=== PATIENT | male | born 1980 | race Caucasian/White ===

== ENCOUNTER 2022-01-08 10:06 | Outpatient (CLI) | payer OTHER ==
[2022-01-08 21:14] VITALS: BP 128/72
--- NOTE | 2022-01-08 21:14 | SLEEP CARE CONSULTATION ---
Information from patient questionnaire entered by Michelle Bird MA. I have reviewed and concur with the information entered by Michelle Bird MA. This document represents the service I personally performed and the decisions made by me, Gonsalo Pittman MD, [facility]. History of Present Illness Service Date and Time: 01/08/2022 1006 Reason for Visit: New patient (ONSET 11/2011, NO PRIORS,) Chief Complaint: reports: Insomnia, Unrefreshed sleep, Snoring, Excessive daytime sleepiness, Observed pauses in breathing, Fatigue, Frequent awakenings at night, Other Date of Onset: 10 PLUS YEARS Usual bedtime: 900 PM Time it takes to fall asleep: 1 HOURS Snores at night: Yes Observed to quit breathing while asleep: Yes (BUT NOT OFTEN) Sleeps alone due to snoring: No (HEAVY SLEEPER) Number of times waking at night: 1 - 2 Reasons for waking at night: reports: Snoring, Bathroom, Other Toss, Turn, or Twitch while sleeping: Yes Recalls having dreams: Yes Usually gets out of bed at: 0630 Feels refreshed in the morning: No Morning headache: No Sleepy or fatigued during the day: Yes Ever fallen asleep while driving: No Takes day naps: Yes Dreams during day naps: No Prior sleep studies: No Additional HPI information: I had the pleasure of seeing Mr. Ely today regarding the possibility of him having a sleep disorder. As you know, he is a 41-year-old gentleman who complains of loud snore, observed apneas, frequent awakenings, persistent fatigue, and excessive daytime sleepiness for at least 10 years. The patient tells me that he normally goes to bed around 9 pm, and it takes him approximately 30 minutes to fall asleep. He has been told that he snores loudly and irregularly at night. He has also never been observed to stop breathing in his sleep. His can sleep in the same bed. He can recall waking up on the average of 3 times during the night. He has awakened occasionally because of his own snoring, but not choking, or having to gasp for air. There is a lot of tossing and turning in his sleep. He reports having night terrors. In the morning he usually gets up out of the bed around 6:30 a.m. not feeling refreshed nor rested. He usually does not have a morning headache. During the day he complains of feeling sleepy and fatigued. His score on [place] Sleepiness Scale is 10 out of 24. He never has fallen asleep while driving nor has had any accident due to sleepiness. He usually does not take naps during the day. He denies having impaired concentration during the day. 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 Patient is and lives in [place]. Have you smoked in the past 12 months: Yes Cigarettes per day (20/pack): 10 Years of smokin Quit date: 2006 Smoking Pack Years: 5.0 Alcohol use: Yes Alcohol amount and frequency: 6-8- WEEKLY Caffeine use: Yes Caffeine amount and frequency: 5-6 X WEEKLY Family History Family history of sleep disordered breathing: Yes Family Hx Sleep Apnea: Father: Snoring, Sibling: Snoring Allergies and Home Medications Known drug allergies: No Drug allergies reviewed: Yes Home medication list reviewed: Yes Review of Systems Cardiovascular: reports: high blood pressure Respiratory: denies: shortness of breath, wheeze, sputum production, chronic cough, other Gastrointestinal: reports: heartburn Urinary: denies: incontinence, frequency, urgency, impotence, other Neurological: denies: headaches, seizure, head trauma, disorientation, speech dysfunction, gait or balance problems, fainting or unconsciousness, other Psychiatric: reports: anxiety Ear/Nose/Throat: denies: nasal congestion, sinus problems, nose bleeds, dry mouth/throat, hoarseness, injury to nose, tonsillectomy, wisdom teeth removed, other Endocrine: denies: thyroid disease, history of goiter, sluggishness, too hot or cold, excessive thirst, increased appetite, increased urination, unexplained weakness, other Musculoskeletal: denies: joint pain, neck pain, back pain, joint swelling, muscle pain or cramping, mobility problems, other Immunologic: denies: sneezing, rash, itching, allergies to food or environment, other Physical Exam Vital signs obtained and entered by: ELVIRA AGUSTIN Blood Pressure: 128/72 (LEFT, PULSE 71, RESP 16,) Cuff size: wrist Heart Rate: 64 O2 Saturation: 98 (CLOTH MASK) Height: 6 ft 2 in Weight: 230 lb (PT CLOTHES) Body Mass Index: 29.5 BMI Classification: Overweight Neck circumference: 16 (INCHES) Mood/affect: normal Nostrils: patent to airflow Turbinates: normal Septum: midline Mouth and throat: narrow oropharynx Soft palate: long Hard palate: normal Uvula: normal Uvula visualization: 50% Mallampati Class II Tongue: normal in size Tonsils: small Chin and jaw: normal size and position Neck: normal w/o lymphadenopathy or thyromegaly Impression and Plan IMPRESSION: 1. Obstructive Sleep Apnea-Hypopnea Syndrome, as suggested by history of loud and irregular snoring, observed cessation of breath while asleep, frequent awakenings during the night, unrefreshed sleep, and daytime hypersomnolence. Narrow oropharynx and obesity are common predisposing factors for obstructive sleep apnea-hypopnea syndrome. Untreated obstructive sleep apnea can also cause hypertension. I recommend proceeding to polysomnography to confirm the diagnosis and to assess severity. I informed the patient of what the sleep studies involve and after some discussion, he agreed to proceed. Plan: 1. Schedule polysomnography and return in 1 to 2 weeks after the study to discuss result and initiate therapy. 2. Avoid long distance driving or when feeling sleepy. 3. Avoid alcohol, sedative, and muscle relaxant around bedtime. 4. Attempt to lose weight. Follow up with Sleep Care in: 1-2 months Visit Type: In Office Time Spent with Patient (minutes): 15 Provider Statement: I spent 100% of the Face to Face Visit with the patient with greater than 50% spent counseling the patient and coordination of care.
== END 2022-01-08 10:07 | disposition home or self-care (01) ==
LOC: SC 10:06
PROVIDERS: ATTEND Internal Medicine Pulmonary Disease
DX: R06.83 Snoring (principal); R06.81 Apnea, not elsewhere classified; G47.8 Other sleep disorders; G47.10 Hypersomnia, unspecified
CPT/HCPCS: 99202; 99212

== ENCOUNTER 2022-01-29 20:21 | Outpatient (CLI) | payer OTHER | END 2022-01-29 20:22 | disposition home or self-care (01) | LOC: SC 20:21 | PROVIDERS: ATTEND Internal Medicine Pulmonary Disease | DX: G47.33 Obstructive sleep apnea (adult) (pediatric) (principal); G47.61 Periodic limb movement disorder | CPT/HCPCS: 95810 ==

== ENCOUNTER 2022-02-08 13:42 | Outpatient (CLI) | payer OTHER ==
[2022-02-08 14:24] VITALS: BP 135/76
--- NOTE | 2022-02-08 14:24 | SLEEP CARE CONSULTATION ---
Information from patient questionnaire entered by Michelle Bird MA. I have reviewed and concur with the information entered by Michelle Bird MA. This document represents the service I personally performed and the decisions made by , Sharee Orosco ARNP. History of Present Illness Service Date and Time: 02/08/2022 1342 Initial [place] Sleepiness Scale score: 10 (2021) Current [place] Sleepiness Scale score: 10 (02/23) Additional HPI information: GRACE SHAFFER returns for follow up and results of the recently performed polysomnography. I explained the pathophysiology behind obstructive sleep apnea. We then spent quite a bit of time discussing different treatment options. For mild obstructive sleep apnea, surgery and oral appliance are alternatives to nasal CPAP therapy but in moderate or severe cases, nasal CPAP is the most effective and reliable treatment. Because apnea is primarily in supine position, then positional management therapy could be effective. Methods discussed such as positioning with pillows to prevent supine sleep. I reviewed the impact of weight changes on sleep apnea and strongly recommended losing weight. After some discussion, the patient opted to go with the nasal CPAP therapy. Nasal autoCPAP set at 4-15 cmH20 will be ordered with rationale explained. A manual titration study will be ordered if unable to find optimal pressure with office adjustments. I explained how CPAP machine works and what to expect when using the machine. Using CPAP every night in order to get used to it was emphasized. Patient advised to put CPAP mask on before getting into bed so as not to fall asleep without CPAP. To assist acclimation to CPAP use, it could also be used for a short time during day while reading or watching TV. The patient was instructed to call the CPAP supplier to discuss any mechanical problem that may occur. If the mask given is uncomfortable or is difficult to keep on through the night even with adjustment, contact the CPAP supplier as many will replace with another mask style if notified before 30 days. If snoring or perceives is not getting enough air or too much air from the machine, notify this office. AASM patient education PAP tips reviewed and given to patient. Patient counseled not drink alcohol less than 4 hours before bedtime as it can increase snoring and apnea. Patient was cautioned about risks of drowsy driving until sleepiness symptoms resolve. Patient denies drowsy driving. Sleep Study - Results Type of Sleep Study: Home sleep study (F/U HOME STUDY, 01/29/22 [facility],) Prior sleep studies: No Polysomnography/Home Sleep Study results: IMPRESSION: The quality of the study is good. The patient had poor sleep efficiency as he was awake the first half of the study. The sleep architecture was abnormal for sleep fragmentation and reduced amount of time spent in REM and slow wave sleep (N3). Respiratory monitoring showed mild obstructive sleep apnea-hypopnea (AHI = 5.4) associated with frequent arousals, oxyhemoglobin desaturation but no significant hypoxia (santosh oxygen saturation of 90%). The respiratory events occurred almost exclusively during supine sleep (supine AHI = 8.6; nonsupine = 3.75). Snore was moderate to loud in intensity. There was mild periodic leg movement of sleep not contributing to the sleep fragmentation. Cardiac rhythm was normal sinus rhythm without significant arrhythmia. No abnormal behavior (parasomnia) observed during the night. Allergies and Home Medications Known drug allergies: No Drug allergies reviewed: Yes Home medication list reviewed: Yes (no changes) Review of Systems Review of systems same as previous: Yes (no changes) Physical Exam Vital signs obtained and entered by: Cindy BIRD CMA [facility] Blood Pressure: 135/76 (LEFT, PULSE 106, RESP 20 ) Heart Rate: 107 O2 Saturation: 98 Height: 6 ft 2 in Weight: 232 lb (UNIFORM) Body Mass Index: 29.7 BMI Classification: Overweight Impression and Plan 1. Obstructive Sleep Apnea-Hypopnea Syndrome, mild, with lowest oxygen saturation of 90%. Obviously this is the cause of the patients symptoms of unrefreshed sleep, and excessive daytime sleepiness. Positive pressure therapy could benefit hypertension and anxiety. As mentioned above, the patient will be started on nasal autoCPAP therapy with pressure set at 4-15 cmH2O. A manual titration study will be completed if unable to find optimal treatment pressure with office adjustments. Compliance guidelines also reviewed. A copy of com pliance guidelines will be given for reference at check out. Because the apnea is more severe supine, I instructed to avoid sleeping supine using pillow positioning until able to start CPAP use. 2. Periodic limb movement, mild, that did not fragment patients sleep. Periodic limb movement of sleep (PLMS) is characterized by episodes of repetitive limb movements that occur during sleep and usually involve the lower limbs. Patient was advised that no treatment is needed at this time. If symptoms increase, then further evaluation is indicated. * Nasal auto CPAP therapy, pressure at 4-15 cm H2O. * Attempt to lose weight. * Avoid alcohol consumption near bedtime. * Avoid supine sleep until using CPAP. * The patient is again cautioned about driving until sleepiness completely resolves. * Return one month after CPAP obtained. I will assess response to therapy and compliance at that time. Counseling Topics: Weight loss health impact Visit Type: In Office Time Spent with Patient (minutes): 21 Provider Statement: I spent 100% of the Face to Face Visit with the patient with greater than 50% spent counseling the patient and coordination of care.
== END 2022-02-08 13:43 | disposition home or self-care (01) ==
LOC: SC 13:42
PROVIDERS: ATTEND Nurse Practitioner Family
DX: G47.33 Obstructive sleep apnea (adult) (pediatric) (principal); G47.61 Periodic limb movement disorder
CPT/HCPCS: 99212; 99213

== ENCOUNTER 2022-05-01 15:06 | Outpatient (CLI) | payer OTHER ==
[2022-05-01 15:43] VITALS: BP 139/82
--- NOTE | 2022-05-01 15:43 | SLEEP CARE CONSULTATION ---
Information from patient questionnaire entered by Michelle Bird MA. I have reviewed and concur with the information entered by Michelle Bird MA. This document represents the service I personally performed and the decisions made by , Sharee Orosco ARNP. History of Present Illness Service Date and Time: 05/01/2022 1506 Previous diagnosis: Mild, Obstructive Sleep Apnea-Hypopnea Syndrome AHI: 5.4 (in 2021) Reason for follow up: first compliance (RESMED, TRIPATHI 03/26/2022, ) Equipment type: CPAP Equipment obtained from: Other ([facility]; got inital supplies) Mask style: Nasal Mask brand: Resmed (AirFit N20) Backup mask available: Yes (other mask) Last cushion change: 2-3 weeks Prior sleep studies: No Type of Sleep Study: Home sleep study (F/U HOME STUDY, 01/29/22 [facility],) HPI additional information: GRACE SHAFFER was diagnosed to have mild, AHI 5.4, obstructive sleep apnea- hypopnea syndrome and returned today for CPAP therapy first compliance follow- up. Sleep Study - Results Type of Sleep Study: Home sleep study (F/U HOME STUDY, 01/29/22 [facility],) Prior sleep studies: No CPAP Compliance Data - Data Reviewed with Patient Average duration of nightly device use: 7 hours 30 minutes Compliance rate %: 93 (03/31/2022-04/29/2022; 30 days, usage) Current pressure setting (cmH2O): 4-15 (median 7.6, avg 10.4, max 11.9) Average residual AHI: 1.6 Central apnea: .1 Obstructive apnea: .8 Hypopnea: .2 Average large leak: 4.1 Subjective Missed days of use due to: reports: travel ([employer], ), other (POWER OUTAGE. ) Patient concerns: reports: mask leak noise (with the full face mask he tried), condensation in mask/hose (resolved with reducing humidity). denies: aerophagia, mask discomfort, air blowing in eyes, nasal congestion, dry mouth, nose, throat, epistaxis, other Observed to snore while using device: No Current pressure setting perceived as: comfortable On therapy, patient: reports: other (not feeling much improvement yet). denies: drowsiness while driving Initial [place] Sleepiness Scale score: 10 (2021) Current [place] Sleepiness Scale score: 10 (05/01/2022) Allergies and Home Medications Home medication list reviewed: Yes (no changes) Review of Systems Review of systems same as previous: Yes (no changes) Physical Exam Vital signs obtained and entered by: ELVIRA AGUSTIN Blood Pressure: 139/82 (LEFT, ) Heart Rate: 80 O2 Saturation: 97 (CLOTH MASK) Height: 6 ft 2 in Weight: 230 lb Body Mass Index: 29.5 BMI Classification: Overweight Impression and Plan 1. Obstructive Sleep Apnea-Hypopnea Syndrome, mild, with good treatment compliance and good apnea control. On CPAP therapy, the patient is still getting used to the air pressure and feels it is interrupting his sleep more than helping him get good sleep. He does not feel he is sleeping as deep since starting the CPAP. Patient has tried about 3 mask styles and likes the ResMed Airfit N20 mask the best so far. He would like a mask with the hose on the top of head but states he will stay with this mask for now. The patients pressure will be changed to autoCPAP 10-12 cmH20 to reflect pressures being used. Patient advised to contact me if pressure change is uncomfortable so that it can be adjusted. Goals for apnea control discussed. Patient's apnea severity and rationale for treatment to reduce apnea, improve sleep quality and reduce cardiovascular and cerebrovascular events was reviewed. I also reviewed the benefit of consistent device use of CPAP for hypertension and anxiety. Patient was encouraged to try to lose weight for his overall health and to reduce apneas. * Change auto CPAP pressure to 10-12 cmH2O * Notify me if snoring with mask or feeling that the pressure is too much or too little * Attempt to lose weight * Call this office if any problems using CPAP * Return for follow up in 1-2 months, or sooner if concerns arise Counseling Topics: Spare mask, Weight loss health impact Visit Type: In Office Time Spent with Patient (minutes): 21 Provider Statement: I spent 100% of the Face to Face Visit with the patient with greater than 50% spent counseling the patient and coordination of care.
== END 2022-05-01 15:07 | disposition home or self-care (01) ==
LOC: SC 15:06
PROVIDERS: ATTEND Nurse Practitioner Family
DX: G47.33 Obstructive sleep apnea (adult) (pediatric) (principal); E66.3 Overweight; Z68.29 Body mass index [BMI] 29.0-29.9, adult
CPT/HCPCS: 99212; 99213

== ENCOUNTER 2022-12-26 10:58 | Outpatient (CLI) | payer OTHER ==
[2022-12-26 11:34] VITALS: BP 134/100
--- NOTE | 2022-12-26 11:34 | SLEEP CARE CONSULTATION ---
Information from patient questionnaire entered by Leonidas Horvath. I have reviewed and concur with the information entered by Leonidas Horvath. This document represents the service I personally performed and the decisions made by me, Sharee Orosco ARNP. History of Present Illness Service Date and Time: 12/26/2022 1058 Previous diagnosis: Mild, Obstructive Sleep Apnea-Hypopnea Syndrome AHI: 5.4 Reason for follow up: six month (F/U) Equipment type: CPAP (RESMED Airsense 11 s/u 03/2022) Equipment obtained from: Other ([facility]; getting supplies as needed) Mask style: Nasal Mask brand: Resmed (N20) Backup mask available: Yes (old mask) Last cushion change: last week Prior sleep studies: No Type of Sleep Study: Home sleep study (F/U HOME STUDY, 01/29/22 [facility],) HPI additional information: GRACE SHAFFER was diagnosed to have mild, AHI 5.4, obstructive sleep apnea- hypopnea syndrome and returned today for CPAP therapy six month follow-up. Sleep Study - Results Type of Sleep Study: Home sleep study (F/U HOME STUDY, 01/29/22 [facility],) Prior sleep studies: No CPAP Compliance Data - Data Reviewed with Patient Average duration of nightly device use: 7 HRS 47 MIN Compliance rate %: 93 (06/08/2022-12/24/22; 172/180 days used) Current pressure setting (cmH2O): 10-12 Average residual AHI: 1.3 Central apnea: 0.1 Obstructive apnea: 1.0 Subjective Missed days of use due to: reports: travel Patient concerns: denies: aerophagia, mask discomfort, air blowing in eyes, mask leak noise, condensation in mask/hose, nasal congestion, dry mouth, nose, throat, epistaxis Observed to snore while using device: No Current pressure setting perceived as: comfortable On therapy, patient: reports: sleeping better, awakening more refreshed, being more awake and alert during the day, more rested overall. denies: drowsiness while driving Initial [place] Sleepiness Scale score: 10 (2021) Current [place] Sleepiness Scale score: 12 (12/26/22) Allergies and Home Medications Drug allergies reviewed: Yes (NKDA) Home medication list reviewed: Yes (no changes) Review of Systems Review of systems same as previous: Yes (no changes) Physical Exam Vital signs obtained and entered by: LEONIDAS Chin MA Blood Pressure: 134/100 (left arm) Cuff size: regular Heart Rate: 78 O2 Saturation: 98 Height: 6 ft 2 in Weight: 250 lb 6.4 oz (with clothes/shoes) Weight change since last visit: 20 lb gain Body Mass Index: 32.1 BMI Classification: Obese Impression and Plan 1. Obstructive Sleep Apnea-Hypopnea Syndrome, mild, with good treatment com pliance and good apnea control. On CPAP therapy, the patient has better sleep quality and is more rested overall. Patient has no complaints. Patient has significant improvement of their sleep apnea and is satisfied with current CPAP therapy. Patient's apnea severity and rationale for treatment to reduce apnea, improve sleep quality and reduce cardiovascular and cerebrovascular events was reviewed. I also reviewed the benefit of consistent device use of CPAP for hypertension and anxiety. 2. Obesity, unspecified. Currently patients BMI is 32.1. He is trying to lose weight. Patient states he and his are trying to walk often and he is going to the gym once a week. Obesity increases the risk of apnea, CPAP pressure requirements and overall health risks especially cardiovascular and diabetes. Thus patient is advised to continue to try to lose weight. * Continue auto CPAP pressure at 10-12 cmH2O * Notify me if snoring with mask or feeling that the pressure is too much or too little * Continue to try to lose weight * Call this office if any problems using CPAP * Return for follow up in 1 year, or sooner if concerns arise Counseling Topics: Spare mask, Weight loss health impact Visit Type: In Office Time Spent with Patient (minutes): 13 Provider Statement: I spent 100% of the Face to Face Visit with the patient with greater than 50% spent counseling the patient and coordination of care.
== END 2022-12-26 10:59 | disposition home or self-care (01) ==
LOC: SC 10:58
PROVIDERS: ATTEND Nurse Practitioner Family
DX: G47.33 Obstructive sleep apnea (adult) (pediatric) (principal); E66.9 Obesity, unspecified; Z68.32 Body mass index [BMI] 32.0-32.9, adult
CPT/HCPCS: 99212

== ENCOUNTER 2024-01-03 11:32 | Outpatient (CLI) | payer OTHER ==
--- NOTE | 2024-01-03 11:42 | Sleep Patient Instructions ---
Sleep Center Visit Summary - Patient Visit Information Reason for Visit: Annual follow-up - Patient Instructions Additional Instructions: You will continue with CPAP therapy with pressure set at 10-12 cmH2O. A supply prescription will be updated with your DME. We encourage you to continue to try to lose weight. Please follow up with the sleep care office in 1 year. - Clinic Information Contact: [facility] [address] [place] [address] [email or web address] T: [phone]
--- NOTE | 2024-01-03 11:47 | SLEEP CARE CONSULTATION ---
Information from patient questionnaire entered by Leonidas Horvath. I have reviewed and concur with the information entered by Leonidas Horvath. This document represents the service I personally performed and the decisions made by , Sharee Orosco ARNP. History of Present Illness Service Date and Time: 01/03/2024 1140 Previous diagnosis: Mild, Obstructive Sleep Apnea-Hypopnea Syndrome AHI: 5.4 Reason for follow up: annual (LAST SEEN 12/2022) Equipment type: CPAP (RESMED Airsense 11 s/u 03/2022) Equipment obtained from: Other ([facility]; getting supplies as needed) Mask style: Nasal Mask brand: Resmed ([id number]) Backup mask available: Yes Last cushion change: recently Prior sleep studies: No Type of Sleep Study: Home sleep study (F/U HOME STUDY, 01/29/22 [facility],) HPI additional information: GRACE SHAFFER was diagnosed to have mild, AHI 5.4, obstructive sleep apnea- hypopnea syndrome and returned today for CPAP therapy annual follow-up. Sleep Study - Results Type of Sleep Study: Home sleep study (F/U HOME STUDY, 01/29/22 [facility],) Prior sleep studies: No CPAP Compliance Data - Data Reviewed with Patient Average duration of nightly device use: 7 HRS 4 MINS Compliance rate %: 90 (01/01/23-12/31/23; 342/365 days used) Current pressure setting (cmH2O): 10-12 Average residual AHI: 1.3 Central apnea: 0.1 Obstructive apnea: 0.9 Hypopnea: 0 Average large leak: 7.9 L/min Subjective Missed days of use due to: reports: illness, other (mask uncomfortable) Patient concerns: denies: aerophagia, mask discomfort, air blowing in eyes, mask leak noise, condensation in mask/hose, nasal congestion, dry mouth, nose, throat, epistaxis Observed to snore while using device: No Current pressure setting perceived as: comfortable On therapy, patient: reports: sleeping better, awakening more refreshed, being more awake and alert during the day, more rested overall. denies: drowsiness while driving Initial [place] Sleepiness Scale score: 10 (2021) Current [place] Sleepiness Scale score: 13 (01/03/24) Allergies and Home Medications Known drug allergies: No Drug allergies reviewed: Yes Home medication list reviewed: Yes (no changes) Review of Systems Review of systems same as previous: Yes (NO CHANGE) Physical Exam Vital signs obtained and entered by: LEONIDAS Chin MA Blood Pressure: 140/95 (RIGHT ARM) Cuff size: long Heart Rate: 69 O2 Saturation: 98 Height: 6 ft 2 in Weight: 243 lb 12.8 oz Weight change since last visit: 7 lb loss Body Mass Index: 31.3 BMI Classification: Obese Impression and Plan 1. Obstructive Sleep Apnea-Hypopnea Syndrome, mild, with good treatment compliance and good apnea control. On CPAP therapy, the patient has better sleep quality and is more rested overall. Patient has significant improvement of their sleep apnea and is satisfied with current CPAP therapy. Patient denies problems with oral dryness, nasal congestion, epistaxis, skin irritation or aerophagia. Patient's apnea severity and rationale for treatment to reduce apnea, improve sleep quality and reduce cardiovascular and cerebrovascular events was reviewed. I also reviewed the benefit of consistent device use of CPAP for hypertension, anxiety. 2. Obesity, unspecified. Currently patients BMI is 31.3. Obesity increases the risk of apnea, CPAP pressure requirements and overall health risks especially cardiovascular and diabetes. Thus patient is advised to continue to try to lose weight. * Continue auto CPAP pressure at 10-12 cmH2O * Update supply prescription * Notify me if snoring with mask or feeling that the pressure is too much or too little * Attempt to lose weight * Call this office if any problems using CPAP * Return for follow up in 12 months, or sooner if concerns arise Counseling Topics: Spare mask, Weight loss health impact Prescriptions: Device supplies Follow up with Sleep Care in: 1 year Visit Type: In Office Time Spent with Patient (minutes): 12 Provider Statement: I spent 100% of the Face to Face Visit with the patient with greater than 50% spent counseling the patient and coordination of care.
[2024-01-03 11:48] VITALS: BP 140/95; O2SAT 98
== END 2024-01-03 11:33 | disposition home or self-care (01) ==
LOC: SC 11:32
PROVIDERS: ATTEND Nurse Practitioner Family
DX: G47.33 Obstructive sleep apnea (adult) (pediatric) (principal); E66.9 Obesity, unspecified; Z68.31 Body mass index [BMI] 31.0-31.9, adult
CPT/HCPCS: 99212